=== PATIENT | male | born 2000 | race Caucasian/White ===

== ENCOUNTER 2020-05-16 03:36 | Emergency (ER) | payer OTHER ==
[~2020-05-16] VITALS: Ht 182.9 cm; Wt 72.3 kg
[2020-05-16 03:47] VITALS: BP 135/80
[2020-05-16] MEDS ORDERED: PENI500T PO (03:59)
[2020-05-16] MEDS ORDERED: IBUP-1780 PO (03:59)
--- NOTE | 2020-05-16 03:59 | ED EENT ---
History of Present Illness General Chief Complaint: Dental Problems/Pain Stated Complaint: DENTAL CARRIES Nursing Triage Note: pt states ongoing tooth ache of top and bottom, left posterior teeth. pt has not taken anything Source: patient Exam Limitations: no limitations History of Present Illness Date Seen by Provider: May 16, 2020 Time Seen by Provider: 03:54 Initial Comments presents w onset of tooth pain starting tonight. Denies injury. Previous similar problem 5 yrs ago and had the tooth pulled, no problems since then. No facial swelling or problems swallowing. NO ear pain or drainage. Allergies and Home Medications Allergies Coded Allergies: No Known Allergies (Unverified Allergy, Unknown, 05/16/20) Patient Home Medication List Home Medication List Reviewed: Yes Review of Systems Review of Systems Constitutional: no symptoms reported Eyes: No Symptoms Reported Ears: No Symptoms Reported Nose: no symptoms reported Mouth: see HPI, pain Throat: no symptoms reported Respiratory: no symptoms reported Past Katzowp-Yxoljb-Plxkbi Hx Past Med/Social Hx: Reviewed Nursing Past Med/Soc Hx Patient Social History Alcohol Use: Denies Use Recreational Drug Use: No Smoking Status: Current Someday Smoker Type Used: Cigarettes 2nd Hand Smoke Exposure: No Recent Foreign Travel: No Contact w/Someone Who Travel: No Recent Infectious Disease Expo: No Recent Hopitalizations: No Physical Abuse: No Sexual Abuse: No Mistreated: No Fear: No Seasonal Allergies Seasonal Allergies: No Past Medical History Surgeries: No Respiratory: No Cardiac: No Neurological: No Genitourinary: No Gastrointestinal: No Musculoskeletal: No Endocrine: No HEENT: No Cancer: No Psychosocial: No Integumentary: No Blood Disorders: No Physical Exam Vital Signs Vital Signs - First Documented 05/16/20 03:47 Temp 36.2 Pulse 66 Resp 15 B/P (MAP) 135/80 (98) Pulse Ox 98 O2 Delivery Room Air Height, Weight, BMI Height: '" Weight: lbs. oz. kg; 21.00 BMI Method: General Appearance: WD/WN, no apparent distress Eyes: bilateral eye normal inspection, bilateral eye PERRL, bilateral eye EOMI Ears: bilateral ear auricle normal, bilateral ear canal normal, bilateral ear TM normal Nose: normal inspection; No sinus tenderness Mouth/Throat: normal mouth inspection, pharynx normal, dental tenderness (left lower post molar without abscess or gross abnl); No excessive drooling, No mandibular swelling, No maxillary swelling, No pharynx swelling, No pharynx tenderness, No tongue swollen, No tonsillar exudate, No tonsillar swelling, No trismus, No uvula swelling, No voice changes Neck: non-tender, supple Neurologic/Psychiatric: no motor/sensory deficits, alert, normal mood/affect Skin: normal color, warm/dry Progress/Results/Core Measures Results/Orders My Orders Orders - PITA AVILES DO Rx-Ibuprofen (Rx-Motrin) (05/16/20 04:00) Rx-Hydrocodone/Apap 5-325 Mg (Rx-Vicodin (05/16/20 04:00) Vital Signs/I&O 05/16/20 03:47 Temp 36.2 Pulse 66 Resp 15 B/P (MAP) 135/80 (98) Pulse Ox 98 O2 Delivery Room Air Blood Pressure Mean: 98 Departure Impression Primary Impression: Dental caries Disposition: HOME, SELF-CARE Condition: Stable Departure-Patient Inst. Decision time for Depature: 03:58 Referrals: NO,LOCAL PHYSICIAN (PCP/Family) Primary Care Physician Patient Instructions: Tooth Decay, Adult (DC) Add. Discharge Instructions: Call your local Dentist today to make a follow up appointment for evaluation of your tooth pain All discharge instructions reviewed with patient and/or family. Voiced understanding. Scripts Ibuprofen (Ibuprofen) 800 Mg Tablet 800 MG PO Q8H PRN for PAIN, #30 TAB 0 Refills Prov: PITA AVILES DO 05/16/20 Penicillin V Potassium (Penicillin V Potassium) 500 Mg Tablet 500 MG PO TID for 7 Days, #21 TAB Prov: PITA AVILES DO 05/16/20 PITA AVILES DO May 16, 2020 03:59
[2020-05-16] MEDS ORDERED: RX-HYDROCODONE/APAP 5/325 MG #4 TAB PK PO ONE (04:00)
[2020-05-16] MEDS ORDERED: RX-IBUPROFEN 600 MG (MOTRIN) TAB PPK#4 PO ONE (04:00)
== END 2020-05-16 04:03 | disposition home or self-care (01) ==
LOC: ER FS 03:41
DX: K02.9 Dental caries, unspecified (principal); F17.210 Nicotine dependence, cigarettes, uncomplicated
CPT/HCPCS: 99283